=== PATIENT | female | born 2000 | race Caucasian/White ===

== ENCOUNTER 2019-11-30 18:17 | Emergency (ER) | payer OTHER ==
--- NOTE | 2019-11-30 20:03 | CR ---
[id number] RAD/RAD Chest PA And Lateral EXAM: RAD Chest PA And Lateral INDICATION: CHEST WALL PAIN COMPARISON: None. DISCUSSION: Cardiomediastinal silhouette is normal in size and contour. No infiltrate, effusion, pneumothorax, or edema. IMPRESSION: No significant cardiopulmonary abnormality. Juan Giron DO 11/30/192002 Thank you for allowing us to participate in the care of your patient.
--- NOTE | 2019-11-30 21:37 | EDM.PDOC ---
ED HPI GENERAL MEDICAL PROBLEM - General Chief Complaint: General Stated Complaint: Left upper chest wall pain Time Seen by Provider: 11/30/19 19:40 Source of Information: Reports: Patient History Limitations: Reports: No Limitations - History of Present Illness INITIAL COMMENTS - FREE TEXT/NARRATIVE: Pt. presents to ER with complaints of cough and respirophasic L anterior chest pain. She states that he cough has improved some, but states that the discomfort is getting worse. Denies any current fever or chills. Complains of mild congestion. Pt. denies any shortness of breath. No hemoptysis. Cough is non-productive. Denies any substernal chest, jaw, arm, neck, or back pain. Onset: Today Onset Date: 11/30/19 Onset Time: 21:35 Location: Reports: Chest Left upper chest Pain Score (Numeric/FACES): 6 - Related Data Allergies Allergy/AdvReac Type Severity Reaction Status Date / Time No Known Drug Allergies Allergy Other Verified 11/30/19 19:47 Home Meds: Home Meds . [No Known Home Meds] 11/30/19 [History] Past Medical History - Past Health History Medical/Surgical History: Denies Medical/Surgical History ED ROS GENERAL - Review of Systems Review Of Systems: See Below Constitutional: Reports: No Symptoms HEENT: Reports: No Symptoms Respiratory: Reports: Pleuritic Chest Pain Cardiovascular: Reports: No Symptoms Endocrine: Reports: No Symptoms GI/Abdominal: Reports: No Symptoms : Reports: No Symptoms Musculoskeletal: Reports: No Symptoms Skin: Reports: No Symptoms Neurological: Reports: No Symptoms Psychiatric: Reports: No Symptoms Hematologic/Lymphatic: Reports: No Symptoms Immunologic: Reports: No Symptoms ED EXAM, GENERAL - Physical Exam Exam: See Below Exam Limited By: No Limitations General Appearance: Alert, WD/WN, No Apparent Distress Head: Atraumatic, Normocephalic Neck: Normal Inspection, Supple, Non-Tender, Full Range of Motion Respiratory/Chest: No Respiratory Distress, Lungs Clear, Normal Breath Sounds, No Accessory Muscle Use, Other (L anterior chest wall tenderness.) Cardiovascular: Normal Peripheral Pulses, Regular Rate, Rhythm, No Edema, No Gallop, No JVD, No Murmur, No Rub Course - Vital Signs Last Recorded V/S: Last Vital Signs Temp 37.3 C 11/30/19 19:30 Pulse 90 11/30/19 19:30 Resp 16 11/30/19 19:30 BP 106/76 11/30/19 19:30 Pulse Ox 97 11/30/19 19:30 Departure - Departure Time of Disposition: 21:00 Disposition: Home, Self-Care 01 Clinical Impression: Atypical chest pain - Discharge Information Instructions: Nonspecific Chest Pain, [id number] Referrals: PCP,Not In Area [Primary Care Provider] - Forms: ED Department Discharge Additional Instructions: Home to rest. Ibuprofen 200mg 3 tabs every 6 hours as needed for pain Drink plenty of fluids Follow-up in clinic if not improving. Sepsis Event Note - Evaluation Sepsis Screening Result: No Definite Risk - Focused Exam Vital Signs: Vital Signs Temp Pulse Resp BP Pulse Ox 11/30/19 19:30 37.3 C 90 16 106/76 97 Date Exam was Performed: 11/30/19 Time Exam was Performed: 21:32 - Assessment/Plan Plan: Home to rest. Ibuprofen 200mg 3 tabs every 6 hours as needed for pain Drink plenty of fluids Follow-up in clinic if not improving.
== END 2019-11-30 20:30 | disposition home or self-care (01) ==
LOC: VM.ED 18:17
DX: R07.89 Other chest pain (principal)
CPT/HCPCS: 71046; 99284-25